=== PATIENT | female | born 1980 | race Caucasian/White ===

== ENCOUNTER 2017-01-30 05:16 | Inpatient (IN) | payer MEDICARE ==
[2017-01-30 03:30] LABS: BASOPHIL 0.3 % (0-2); EOSINOPHIL 0.1 % (0-5); HCT 41.3 % (37.0-47.0); HGB 14.6 g/dl (12.5-16.0); LYMPHOCYTE 18.3 % (15-48); MCH 28.9 pg (25.0-31.0); MCHC 35.4 g/dL (32.0-36.0); MCV 81.6 fL (78.0-100.0); MONOCYTE 8.8 % (0-12); NEUTROPHIL 72.5 % (41-80); PLT 253 K/uL (150-400); RBC 5.06 M/uL (4.20-5.40); RDW 13.5 % (11.5-14.0); WBC 10.9 K/uL (4.0-10.5)
[2017-01-30 03:48] LABS: ALBUMIN 4.6 g/dL (3.5-5.0); BILIRUBIN - TOTAL 0.9 mg/dL (0.1-1.0); CREATININE 0.7 mg/dL (0.5-1.0); GLOBULIN (CALCULATION) 3.4 g/dL (2.2-4.2); POTASSIUM 3.7 mmol/L (3.5-5.1)
[2017-01-30 03:49] LABS: LACTIC ACID 1.6 mmol/L (0.5-2.2)
[2017-01-30 04:16] LABS: BILIRUBIN 2+ mg/dL (NEGATIVE); BLOOD 1+ Ery/uL (NEGATIVE); CLARITY CLEAR (CLEAR); COLOR YELLOW (YELLOW); GLUCOSE (U) NORMAL (NORMAL); KETONE (U) 3+ (LARGE) mg/dL (NEGATIVE); LEUKOCYTES NEGATIVE Leu/uL (NEGATIVE); NITRITE NEGATIVE (NEGATIVE); PROTEIN 2+ mg/dL (NEGATIVE); SPECIFIC GRAVITY 1.025 (1.001-1.030)
[2017-01-30 04:20] LABS: BACTERIA 1+; SQUAMOUS EPITHELIAL CELLS RARE
[2017-01-30 04:21] LABS: MUCOUS TRACE
[2017-01-31 04:32] LABS: CREATININE 0.6 mg/dL (0.5-1.0); MAGNESIUM 2.34 mg/dL (1.40-2.10); POTASSIUM 3.9 mmol/L (3.5-5.1)
[2017-01-31 05:36] LABS: BASOPHIL 0.1 % (0-2); EOSINOPHIL 0 % (0-5); HCT 38.3 % (37.0-47.0); HGB 13.1 g/dl (12.5-16.0); LYMPHOCYTE 10.6 % (15-48); MCH 28.5 pg (25.0-31.0); MCHC 34.2 g/dL (32.0-36.0); MCV 83.3 fL (78.0-100.0); MONOCYTE 5.1 % (0-12); NEUTROPHIL 84.2 % (41-80); PLT 279 K/Ul (150-400); RDW 13.6 % (11.5-14.0); WBC 14.5 K/uL (4.0-10.5)
[2017-02-01 04:33] LABS: BASOPHIL 0.2 % (0-2); EOSINOPHIL 0.1 % (0-5); HCT 35.8 % (37.0-47.0); HGB 12.5 g/dl (12.5-16.0); LYMPHOCYTE 14.2 % (15-48); MCHC 34.9 g/dL (32.0-36.0); MCV 83.1 fL (78.0-100.0); MONOCYTE 4.1 % (0-12); MPV 10.6 fL (6.0-9.5); NEUTROPHIL 81.4 % (41-80); PLT 283 K/uL (150-400); RBC 4.31 M/uL (4.20-5.40); RDW 13.6 % (11.5-14.0); WBC 13.3 K/uL (4.0-10.5)
[2017-02-01 04:47] LABS: CREATININE 0.6 mg/dL (0.5-1.0); POTASSIUM 3.9 mmol/L (3.5-5.1)
[2017-02-02 04:58] LABS: HGB 12.9 g/dl (12.5-16.0); MCH 28.5 pg (25.0-31.0); MCHC 33.9 g/dL (32.0-36.0); MCV 84.1 fL (78.0-100.0); MPV 10.4 fL (6.0-9.5); RBC 4.52 M/uL (4.20-5.40); RDW 13.7 % (11.5-14.0); WBC 9.4 K/uL (4.0-10.5)
[2017-02-02 05:23] LABS: CREATININE 0.7 mg/dL (0.5-1.0); POTASSIUM 3.6 mmol/L (3.5-5.1)
[2017-02-02] MEDS ORDERED: SINGULAIR10 MG PO (14:10)
[2017-02-02] MEDS ORDERED: SYNTHROID100 MCG PO (14:10)
[2017-02-02] MEDS ORDERED: SPIRIVA18 MCG INH (14:13)
[2017-02-02] MEDS ORDERED: LIPITOR20 MG PO (14:14)
[2017-02-02] MEDS ORDERED: ZYRTEC10 MG PO (14:16)
[2017-02-02] MEDS ORDERED: CALCIUM WITH D PO (14:19)
[2017-02-02] MEDS ORDERED: BUSPIRONE HCL15 MG PO (14:20)
[2017-02-02] MEDS ORDERED: GLUCOPHAGE XR750 MG PO (14:20)
[2017-02-02] MEDS ORDERED: PROBIOTIC1 EAC5 PO (14:21)
[2017-02-02] MEDS ORDERED: PEPCID AC10 MG PO (14:22)
[2017-02-02] MEDS ORDERED: PROAIR HFA8.5 GM INH (14:22)
[2017-02-02] MEDS ORDERED: PROZAC20 MG PO (14:23)
[2017-02-02] MEDS ORDERED: FLONASE ALLER15.8 ML (14:23)
[2017-02-02] MEDS ORDERED: LATUDA40 MG PO (14:23)
[2017-02-02] MEDS ORDERED: SUPER B COMPLE150 MG PO (14:24)
[2017-02-02] MEDS ORDERED: VITAMIN D5000 UNIT PO (14:24)
[2017-02-02] MEDS ORDERED: VITAMIN E400 UNIT PO (14:25)
[2017-02-02] MEDS ORDERED: LOVAZA1 GM PO (14:26)
[2017-02-02] MEDS ORDERED: LEVAQUIN500 MG PO (14:27)
[2017-02-02] MEDS ORDERED: VENTOLIN (2.5 MG/3 M NEB (14:27)
== END 2017-02-02 15:17 | disposition home or self-care (01) | DRG 193 ==
LOC: FER 05:16 → FMS 06:17
PROVIDERS: Emergency Medicine; Internal Medicine Cardiovascular Disease; ADMIT Internal Medicine
DX: J18.9 Pneumonia, unspecified organism (principal); J96.01 Acute respiratory failure with hypoxia; J45.901 Unspecified asthma with (acute) exacerbation; F17.210 Nicotine dependence, cigarettes, uncomplicated; G40.909 Epilepsy, unspecified, not intractable, without status epilepticus; K21.9 Gastro-esophageal reflux disease without esophagitis; E28.2 Polycystic ovarian syndrome; F41.9 Anxiety disorder, unspecified; F32.9 Major depressive disorder, single episode, unspecified
CPT/HCPCS: 36415; 36600; 71010; 71275; 80048; 80053; 81001; 82803; 83605; 83735; 84484; 85025; 85379; 87040; 87070; 87088; 87184; 87205; 87449; 87804; 87899; 93005; 94010; 94640; 94667; 94668; 94760; 94762; G0378; J0456; J1956; J2930; Q9967